=== PATIENT | female | born 1980 ===

== ENCOUNTER 2018-06-10 21:39 | Emergency (ER) ==
[2018-06-10 21:44] VITALS: BP 111/69
[2018-06-11] MEDS ORDERED: ASPIRIN 81 MG TABLET, CHEWABLE PO ONE (02:02)
--- NOTE | 2018-06-11 08:43 | EKG REPORT ---
SEVERITY:- NORMAL ECG - SINUS RHYTHM : Confirmed by: William Patterson 11-Jun-2018 08:42:51
== END 2018-06-11 04:55 | disposition left against medical advice (07) ==
LOC: ER 21:39
DX: Z53.21 Procedure and treatment not carried out due to patient leaving prior to being seen by health care provider (principal)
CPT/HCPCS: 93005; 93010